=== PATIENT | male | born 1950 | race Caucasian/White ===

== ENCOUNTER 2020-03-30 15:49 | Emergency (ER) | payer MEDICARE, OTHER ==
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
[2020-03-30 16:27] LABS: ABSOLUTE EOSINOPHILS # (AUTO) 0.2 10^3/uL (0.0-0.6); ABSOLUTE LYMPHOCYTES (AUTO) 1.4 10^3/uL (0.5-4.7); ABSOLUTE MONOCYTES (AUTO) 0.4 10^3/uL (0.1-1.4); BASOPHILS % (AUTO) 0.5 % (0-2); EOSINOPHILS % (AUTO) 3.5 % (0-6); HEMATOCRIT 40.3 % (37.9-51.0); HEMOGLOBIN 13.5 g/dL (13.5-17.0); LYMPHOCYTES % (AUTO) 27.9 % (13-45); MEAN CORPUSCULAR HEMOGLOBIN 32.6 pg (27.0-33.4); MEAN CORPUSCULAR HGB CONC 33.5 g/dL (32.0-36.0); MEAN CORPUSCULAR VOLUME 97 fl (80-97); MONOCYTES % (AUTO) 7.3 % (3-13); PLATELET COUNT 183 10^3/uL (150-450); RED BLOOD COUNT 4.15 10^6/uL (4.35-5.55); RED CELL DISTRIBUTION WIDTH 12.8 % (11.5-14.0); SEGMENTED NEUTROPHILS % (AUTO) 60.8 % (42-78); TOTAL CELLS COUNTED % (AUTO) 100 %
[2020-03-30 16:45] LABS: APPEARANCE,URINE CLEAR; BILIRUBIN,URINE NEGATIVE (NEGATIVE); COLOR,URINE YELLOW; GLUCOSE, URINE NEGATIVE (NEGATIVE); KETONES,URINE NEGATIVE (NEGATIVE); LEUKOCYTE ESTERASE,URINE NEGATIVE (NEGATIVE); NITRITE,URINE NEGATIVE (NEGATIVE); PROTEIN,URINE NEGATIVE (NEGATIVE); URINE SPECIFIC GRAVITY 1.015
[2020-03-30 16:45] LABS: ALBUMIN 3.7 g/dL (3.5-5.0); ALKALINE PHOSPHATASE 82 U/L (38-126); ANION GAP 5 (5-19); ASPARTATE AMINO TRANSFERASE 16 U/L (17-59); BILIRUBIN,TOTAL 0.6 mg/dL (0.2-1.3); BLOOD UREA NITROGEN 21 mg/dL (7-20); CALCIUM 8.7 mg/dL (8.4-10.2); CARBON DIOXIDE 27 mmol/L (22-30); CHLORIDE 106 mmol/L (98-107); GLUCOSE 95 mg/dL (75-110); TOTAL PROTEIN 5.9 g/dL (6.3-8.2)
--- NOTE | 2020-03-30 17:11 | RADIOLOGY REPORT (SQ) ---
EXAM DESCRIPTION: CT HEAD WITHOUT IMAGES COMPLETED DATE/TIME: 03/30/2020 5:00 pm REASON FOR STUDY: syncope COMPARISON: None. TECHNIQUE: Axial images acquired through the brain without intravenous contrast. Images reviewed wi th bone, brain and subdural windows. Additional sagittal and coronal reconstructions were generated. Images stored on PACS. All CT scanners at this facility use dose modulation, iterative reconstruction, and/or weight based d osing when appropriate to reduce radiation dose to as low as reasonably achievable (ALARA). [facility]: Dose Right [facility]: CareDose [facility]: Dose Right [facility]: Teradose 4D [facility]: [employer] RADIATION DOSE: CT Rad equipment meets quality standard of care and radiation dose reduction techniq ues were employed. CTDIvol: 53.2 mGy. DLP: 1124 mGy-cm. LIMITATIONS: None. FINDINGS: There is no acute intracranial hemorrhage, vascular territorial infarct, extra-axial fluid collection, mass effect or midline shift. The diego-white matter differentiation is preserved. Ther e is no effacement of the cerebral sulci or basal subarachnoid cisterns. The caliber of the ventricl es is concordant with the degree of sulcation. The orbits and globes are intact. The paranasal sinuses are clear. There is no fracture of the calv arium. IMPRESSION: No acute intracranial abnormality. EVIDENCE OF ACUTE STROKE: NO. COMMENT: Quality ID # [id number]: Final reports with documentation of one or more dose reduction techniques (e.g., Automated exposure control, adjustment of the mA and/or kV according to patient size, use of iterative reconstruction technique) TECHNICAL DOCUMENTATION: JOB ID: [id number] 2010 [employer]- All Rights Reserved Reading location - IP/workstation name: [email or web address]
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
[2020-03-30 17:50] VITALS: BP 130/75
--- NOTE | 2020-03-30 22:40 | EKG REPORT ---
SEVERITY:- NORMAL ECG - SINUS RHYTHM : Confirmed by: Eliana Patel 30-Mar-2020 22:40:08
== END 2020-03-30 18:32 | disposition home or self-care (01) ==
LOC: ER 15:49
DX: Z04.1 Encounter for examination and observation following transport accident (principal); R41.82 Altered mental status, unspecified; R41.3 Other amnesia; Z87.891 Personal history of nicotine dependence
CPT/HCPCS: 36415; 70450; 80053; 81001; 84484; 85025; 93005; 93010; 96374; 99284

== ENCOUNTER 2020-07-28 06:53 | Day surgery (SDC) | payer MEDICARE, OTHER ==
[~2020-07-28 06:53] MED LIST: KETOROLAC TROMETHAMINE 0.45% 4 DROP/0.4 ML DROPERETTE OD PRN
[2020-07-28] MEDS: TETRACAINE HCL 0.5% OPH SOLN 4 ML OD PRN ×4 (07:13→07:54)
[2020-07-28] MEDS: BESIFLOXACIN HCL 0.6% OPH SUSP 5 ML BOTTLE OD PRN ×4 (07:13→08:28)
[2020-07-28] MEDS: CYCLOPENTOLATE 0.2%/PHENYLEPHRINE 1% OPH SOLN 2 ML OD PRN ×3 (07:13→07:33)
[2020-07-28] MEDS: TROPICAMIDE 1% OPH SOLN 15 ML OD PRN ×3 (07:13→07:33)
[2020-07-28] MEDS ORDERED: FENTANYL CITRATE INJ/PF 100 MCG/2 ML AMPUL ONE (07:18)
[2020-07-28] MEDS ORDERED: MIDAZOLAM 2 MG/2 ML INJ ONE (07:18)
[2020-07-28] MEDS: LIDOCAINE 4% INJ/PF (40 MG/ML) 5 ML AMPUL OD PRN ×2 (07:56)
[2020-07-28] MEDS: BUPIVACAINE HCL 0.75% INJ/PF (7.5 MG/1 ML) 10 ML SDV OD PRN ×2 (07:56)
[2020-07-28] MEDS: CHONDR SU A NA/HYALUR INTRAOC KIT (SURGICARE) ONE ×2 (08:14)
[2020-07-28] MEDS: EPINEPHRINE INJ/PF 1 MG/1 ML AMPULE ONE ×2 (08:14)
[2020-07-28] MEDS: LIDOCAINE 1% INJ-PF (10 MG/ML) 30 ML SDV ONE ×2 (08:14)
[2020-07-28] MEDS: PREDNISOLONE ACETATE 1% OPH SUSP 5 ML OD PRN ×2 (08:28)
[2020-07-28] MEDS: DORZOLAMIDE HCL 2%/TIMOLOL MALEAT 0.5% OPH SOLN 10 ML OD PRN ×2 (08:28)
--- NOTE | 2020-07-28 08:37 | Operative Report ---
Operative Report-[facility] Operative Report: DATE OF SURGERY: 07/28/2020 PREOPERATIVE DIAGNOSIS: CATARACT, RIGHT EYE. POSTOPERATIVE DIAGNOSIS: CATARACT, RIGHT EYE. PROCEDURE PERFORMED: PHACOEMULSIFICATION WITH POSTERIOR CHAMBER INTRAOCULAR LENS, RIGHT EYE. Intraocular Lens Model : MX60E 22.0 Total Phaco Time: 6.59 CDE SURGEON: DERECK RICHARD MD ANESTHESIA: TOPICAL WITH MAC. INDICATIONS FOR SURGERY: Difficulty reading small print and traffic signs. PROCEDURE: The patient was brought to the Operating Room and placed on the operative table. Following tetracaine drops, topical anesthesia was administered. This consisted of instrument wipe pledgets soaked in a solution of 4% Xylocaine mixed with 0.75% Marcaine in a 1:2 ratio. A 2 x 1 cm pledget was placed in the superior fornix. A 1 x 1 cm pledget was placed in the inferior fornix. The eye was patched shut for 5 minutes. The patch was removed. The eye was sterilely prepped and draped in the usual manner. Lid speculum was placed in the eye. The pledgets were removed. 4-0 black silk sutures were placed around the superior and the inferior rectus muscles to be used as traction. A conjunctival peritomy was made at the 10 o'clock position. Hemostasis was obtained with bipolar cautery. A posterior limbal groove was created using a crescent knife and dissected anteriorly towards the cornea. A sharp point blade was used to create a paracentesis site at the 2 o'clock position. 0.2 cc non preserved Lidocaine was injected into the anterior chamber. A 2.4 mm keratome was used to enter the anterior chamber through the groove. Viscoelastic was injected into the anterior chamber. An anterior capsulotomy was performed using Utrata forceps in a capsulorrhexis fashion. Hydrodissection and hydrodelineation were performed. Phacoemulsification was performed in [id number] technique. Following this, the I/A unit was used to remove residual cortex. Viscoelastic was injected into the capsular bag. The Intraocular lens was placed in the capsular bag. The I/A unit was used to remove residual viscoelastic. The wound was seen to be watertight under high and low pressure, and no sutures were placed. The intraocular lens was well centered. The pressure was adjusted in the eye to normal pressure. The 4-0 black silk sutures and lid speculum were removed. The eye was shielded after Besivance. prednisolone, and Cosopt drops were placed. The patient tolerated the procedure well and was sent to the Recovery Room in good condition.
== END 2020-07-28 09:00 | disposition home or self-care (01) ==
LOC: SC 06:53
PROVIDERS: ATTEND Ophthalmology
DX: H25.811 Combined forms of age-related cataract, right eye (principal); H04.123 Dry eye syndrome of bilateral lacrimal glands; H52.4 Presbyopia; I10 Essential (primary) hypertension; E78.00 Pure hypercholesterolemia, unspecified; K21.9 Gastro-esophageal reflux disease without esophagitis; M19.90 Unspecified osteoarthritis, unspecified site; Z87.891 Personal history of nicotine dependence
CPT/HCPCS: 66984; V2632; J2250; J3490 ×5; A9270; J0171; J3010

== ENCOUNTER 2020-08-18 09:45 | Day surgery (SDC) | payer MEDICARE, OTHER ==
[~2020-08-18 09:45] MED LIST changes: +BUPIVACAINE HCL 0.75% INJ/PF (7.5 MG/1 ML) 10 ML SDV OS PRN; -KETOROLAC TROMETHAMINE 0.45% 4 DROP/0.4 ML DROPERETTE OD PRN; +KETOROLAC TROMETHAMINE 0.45% 4 DROP/0.4 ML DROPERETTE OS PRN; +LIDOCAINE 4% INJ/PF (40 MG/ML) 5 ML AMPUL OS PRN; +MIDAZOLAM 2 MG/2 ML INJ ONE
[2020-08-18] MEDS: BESIFLOXACIN HCL 0.6% OPH SUSP 5 ML BOTTLE OS PRN ×5 (10:22→11:26)
[2020-08-18] MEDS: CYCLOPENTOLATE 0.2%/PHENYLEPHRINE 1% OPH SOLN 2 ML OS PRN ×3 (10:22→10:36)
[2020-08-18] MEDS: TROPICAMIDE 1% OPH SOLN 15 ML OS PRN ×3 (10:22→10:36)
[2020-08-18] MEDS: TETRACAINE HCL 0.5% OPH SOLN 4 ML OS PRN ×3 (10:22→11:04)
[2020-08-18] MEDS: LIDOCAINE 1% INJ-PF (10 MG/ML) 30 ML SDV ONE ×2 (11:13→11:14)
[2020-08-18] MEDS: CHONDR SU A NA/HYALUR INTRAOC KIT (SURGICARE) ONE ×2 (11:13→11:14)
[2020-08-18] MEDS: EPINEPHRINE INJ/PF 1 MG/1 ML AMPULE ONE ×2 (11:13→11:14)
[2020-08-18] MEDS: DORZOLAMIDE HCL 2%/TIMOLOL MALEAT 0.5% OPH SOLN 10 ML OS PRN ×3 (11:25→11:26)
[2020-08-18] MEDS: PREDNISOLONE ACETATE 1% OPH SUSP 5 ML OS PRN ×3 (11:25→11:26)
[2020-08-18 12:11] VITALS: BP 115/72
--- NOTE | 2020-08-18 12:39 | Operative Report ---
Operative Report-[facility] Operative Report: DATE OF SURGERY: 08/18/2020 PREOPERATIVE DIAGNOSIS: CATARACT, LEFT EYE. POSTOPERATIVE DIAGNOSIS: CATARACT, LEFT EYE. PROCEDURE PERFORMED: PHACOEMULSIFICATION WITH POSTERIOR CHAMBER INTRAOCULAR LENS, LEFT EYE. Intraocular Lens Model : MX60E 22.0 Total Phaco Time: 6.77 CDE SURGEON: DERECK RICHARD MD ANESTHESIA: TOPICAL WITH MAC. INDICATIONS FOR SURGERY: Difficultly fishing and reading tape measure PROCEDURE: The patient was brought to the Operating Room and placed on the operative table. Following tetracaine drops, topical anesthesia was administered. This consisted of instrument wipe pledgets soaked in a solution of 4% Xylocaine mixed with 0.75% Marcaine in a 1:2 ratio. A 2 x 1 cm pledget was placed in the superior fornix. A 1 x 1 cm pledget was placed in the inferior fornix. The eye was patched shut for 5 minutes. The patch was removed. The eye was sterilely prepped and draped in the usual manner. Lid speculum was placed in the eye. The pledgets were removed. 4-0 black silk sutures were placed around the superior and the inferior rectus muscles to be used as traction. A conjunctival peritomy was made at the 10 o'clock position. Hemostasis was obtained with bipolar cautery. A posterior limbal groove was created using a crescent knife and dissected anteriorly towards the cornea. A sharp point blade was used to create a paracentesis site at the 2 o'clock position. 0.2 cc non preserved Lidocaine was injected into the anterior chamber. A 2.4 mm keratome was used to enter the ante rior chamber through the groove. Viscoelastic was injected into the anterior chamber. An anterior capsulotomy was performed using Utrata forceps in a capsulorrhexis fashion. Hydrodissection and hydrodelineation were performed. Phacoemulsification was performed in [id number] technique. Following this, the I/A unit was used to remove residual cortex. Viscoelastic was injected into the capsular bag. The Intraocular lens was placed in the capsular bag. The I/A unit was used to remove residual viscoelastic. The wound was seen to be watertight under high and low pressure, and no sutures were placed. The intraocular lens was well centered. The pressure was adjusted in the eye to normal pressure. The 4-0 black silk sutures and lid speculum were removed. The eye was shielded after Besivance,prednisolone, and Cosopt drops were placed. The patient tolerated the procedure well and was sent to the Recovery Room in good condition.
== END 2020-08-18 12:08 | disposition home or self-care (01) ==
LOC: SC 09:45
PROVIDERS: ATTEND Ophthalmology
DX: H25.812 Combined forms of age-related cataract, left eye (principal); Z96.1 Presence of intraocular lens; I10 Essential (primary) hypertension; K21.9 Gastro-esophageal reflux disease without esophagitis; Z79.899 Other long term (current) drug therapy; Z83.518 Family history of other specified eye disorder; Z87.891 Personal history of nicotine dependence
CPT/HCPCS: 66984; V2632; J2250; J3490 ×5; A9270; J0171

== ENCOUNTER 2020-09-11 20:36 | Emergency (ER) | payer MEDICARE, OTHER ==
--- NOTE | 2020-09-11 20:55 | ER Document Report ---
ED Medical Screen (RME) - General Chief Complaint: Chest Pain Stated Complaint: CHEST PAIN Time Seen by Provider: 09/11/20 20:47 Primary Care Provider: ALVERTO KUNZ MD [Primary Care Provider] - Follow up as needed Mode of Arrival: Wheelchair Information source: Patient Notes: 69-year-old male presented to ED for complaint of pain to the left side of his chest radiating down the left arm with numbness to the left arm left face left ear left jaw. He also has pain to the left ear left jaw. I have let the charge nurse his pain is an that he also has numbness to his left side of his face jaw and arm. She stated she did not have a bed at this time but to get his blood work drawn promptly. I have asked the tech to place draw his blood next. Charge nurses patient can go to room 10 I have greeted and performed a rapid initial assessment of this patient. A comprehensive ED assessment and evaluation of the patient, analysis of test results and completion of medical decision making process will be conducted by an additional ED providers. - Related Data Allergies/Adverse Reactions: No Known Allergies Allergy (Verified 07/28/20 07:16) Past Medical History - Past Medical History Cardiac Medical History: Denies: Hx Heart Attack, Hx Hypertension Pulmonary Medical History: Denies: Hx Asthma Neurological Medical History: Denies: Hx Cerebrovascular Accident, Hx Seizures GI Medical History: Denies: Hx Hepatitis, Hx Hiatal Hernia, Hx Ulcer Infectious Medical History: Denies: Hx Hepatitis Past Surgical History: Denies: Hx Open Heart Surgery, Hx Pacemaker Doctor's Discharge - Discharge Referrals: ALVERTO KUNZ MD [Primary Care Provider] - Follow up as needed
[2020-09-11 21:10] LABS: ABSOLUTE EOSINOPHILS # (AUTO) 0.1 10^3/uL (0.0-0.6); ABSOLUTE LYMPHOCYTES (AUTO) 1.6 10^3/uL (0.5-4.7); ABSOLUTE MONOCYTES (AUTO) 0.6 10^3/uL (0.1-1.4); ABSOLUTE NEUT (AUTO) 7.2 10^3/uL (1.7-8.2); BASOPHILS % (AUTO) 0.3 % (0-2); EOSINOPHILS % (AUTO) 1.2 % (0-6); HEMATOCRIT 42.2 % (37.9-51.0); HEMOGLOBIN 14.2 g/dL (13.5-17.0); LYMPHOCYTES % (AUTO) 16.4 % (13-45); MEAN CORPUSCULAR HEMOGLOBIN 33.2 pg (27.0-33.4); MEAN CORPUSCULAR HGB CONC 33.6 g/dL (32.0-36.0); MEAN CORPUSCULAR VOLUME 99 fl (80-97); MONOCYTES % (AUTO) 5.9 % (3-13); PLATELET COUNT 234 10^3/uL (150-450); RED BLOOD COUNT 4.27 10^6/uL (4.35-5.55); RED CELL DISTRIBUTION WIDTH 12.9 % (11.5-14.0); SEGMENTED NEUTROPHILS % (AUTO) 76.2 % (42-78); TOTAL CELLS COUNTED % (AUTO) 100 %; WHITE BLOOD COUNT 9.5 10^3/uL (4.0-10.5)
[2020-09-11 21:27] LABS: ALBUMIN 3.8 g/dL (3.5-5.0); ALKALINE PHOSPHATASE 78 U/L (38-126); ANION GAP 5 (5-19); ASPARTATE AMINO TRANSFERASE 11 U/L (17-59); BILIRUBIN,DIRECT 0.1 mg/dL (0.0-0.4); BILIRUBIN,TOTAL 0.7 mg/dL (0.2-1.3); BLOOD UREA NITROGEN 26 mg/dL (7-20); CALCIUM 9.5 mg/dL (8.4-10.2); CARBON DIOXIDE 29 mmol/L (22-30); CHLORIDE 104 mmol/L (98-107); CREATINE KINASE 47 U/L (55-170); GLUCOSE 102 mg/dL (75-110); POTASSIUM 4.8 mmol/L (3.6-5.0); TOTAL PROTEIN 6.1 g/dL (6.3-8.2)
--- NOTE | 2020-09-11 22:13 | RADIOLOGY REPORT (SQ) ---
EXAM DESCRIPTION: CHEST 2 VIEWS CLINICAL HISTORY: 69 years Male, Left chest pain radiating to jaw and left ear COMPARISON: None. FINDINGS: Lungs: Lungs are hyperinflated. No focal consolidation. No pneumothorax or pleural effusion. Mediastinum: Cardiac and mediastinal silhouette are normal. Bones: There is endplate spondylosis throughout the thoracic spine. IMPRESSION: Hyperinflation. No pneumonia or edema.
--- NOTE | 2020-09-12 00:34 | RADIOLOGY REPORT (SQ) ---
EXAM DESCRIPTION: CT HEAD WITHOUT IV CONTRAST COMPLETED DATE/TME: 09/12/2020 00:15 CLINICAL HISTORY: numbness left side COMPARISON: 03/30/2020 TECHNIQUE: Axial CT of the head obtained from the skull apex to the skull base without contrast. FINDINGS: No acute intracranial hemorrhage identified. No mass, mass effect, shift of the midline, abnormal extra-axial fluid collection or CT evidence of acute ischemic change identified. The ventricular system and sulcal spaces are not enlarged. Scattered areas of hypodensity throughout the supratentorial white matter are nonspecific and may be related to chronic small vessel ischemic change. The visualized paranasal sinuses and mastoid air cells are well aerated. No skull fracture identified. Visualized orbits and globes are unremarkable. Atherosclerotic calcification of the intracranial internal carotid arteries. IMPRESSION: 1. No acute intracranial abnormality by CT criteria. This exam was performed according to our departmental dose-optimization program, which includes automated exposure control, adjustment of the mA and/or kV according to patient size and/or use of iterative reconstruction technique.
--- NOTE | 2020-09-12 01:01 | RADIOLOGY REPORT (SQ) ---
EXAM DESCRIPTION: CTA ABDOMEN/PELVIS W WO (accession [id number]), CTA CHEST (accession [id number]) CLINICAL HISTORY: 69 years Male; numbness to left side with chest pain TECHNIQUE: Unenhanced CT scan of the chest was initially performed. This was followed by CT angiogram of the chest using intravenous contrast.. MIP reconstructions were performed. All CT scans at this facility use dose modulation, iterative reconstruction, and/or weight based dosing when appropriate to reduce radiation dose to as low as reasonably achievable. COMPARISON: None. FINDINGS: Motion artifact is present throughout the exam. Chest: Vascular: Thoracic aorta is of normal caliber. No aneurysm or dissection. The central pulmonary arteries are well opacified. Proximal great vessels are patent. Lungs: Lungs appear hyperinflated. No focal consolidation. No pneumothorax or pleural effusion. No pulmonary nodules or masses. Mediastinum: Heart size is normal. No pericardial abnormality. No mediastinal or hilar lymphadenopathy. Bones and soft tissues: There is endplate spondylosis in the spine. No obvious fracture. There is ac joint arthropathy bilaterally. IMPRESSION: 1. No thoracic aortic aneurysm or dissection. 2. No large or central PE is seen. 3. No acute process in the chest. EXAM DESCRIPTION: CTA ABDOMEN/PELVIS W WO (accession [id number]), CTA CHEST (accession [id number]) CLINICAL HISTORY: 69 years Male; numbness to left side with chest pain TECHNIQUE: Unenhanced CT scan of the abdomen and pelvis. This was followed by CT angiogram of the abdomen and pelvis using intravenous contrast.. MIP reconstructions were performed. 3-D volumetric imaging was performed. Abdomen and pelvis All CT scans at this facility use dose modulation, iterative reconstruction, and/or weight based dosing when appropriate to reduce radiation dose to as low as reasonably achievable. COMPARISON: None. FINDINGS: Motion artifact is present throughout the exam. ABDOMEN: Aorta: Scattered vascular plaque is present in the aorta. In the mid abdominal aorta is a small saccular aneurysm which measures 3.2 cm. No dissection. No evidence of impending rupture. Celiac: Normal SMA: Normal Left renal: Normal Right renal: Normal [place]: Normal Liver: There is a probable low density area in the left liver lobe measuring approximately 10 mm. Liver and gallbladder mostly obscured by motion artifact. No obvious abnormality. Pancreas:Within normal limits Spleen:Within normal limits Kidneys: In the lower pole of the left kidney is a 10 mm nonobstructing stone. There is no hydronephrosis. Adrenal glands:Within normal limits GI: Moderate stool is present throughout the colon. No focal obstruction. Overall visualization the bowel is limited secondary to motion appendix: The appendix is not clearly seen. Abdominal wall: Unremarkable Retroperitoneal: No mass or lymphadenopathy General: No free air. No free fluid. Bones: Degenerative changes noted in the lumbar spine. No destructive bone lesions. Bladder: There is a diverticulum arising from the right posterior aspect of the bladder Pelvis: No pelvic mass or adenopathy. PELVIS: The common, internal and Iliac arteries have scattered vascular plaque. No dissection, aneurysm or occlusion. Common femoral arteries are patent bilaterally. IMPRESSION: 1. 3.2 cm saccular abdominal aortic aneurysm. Vascular consultation is recommended. No evidence of impending rupture. No dissection. 2. Nonobstructing stone in the lower pole of the left kidney. 3. Qualitatively the exam is limited secondary to a large amount of motion. No obvious acute abnormality.
--- NOTE | 2020-09-12 01:01 | RADIOLOGY REPORT (SQ) ---
EXAM DESCRIPTION: CTA ABDOMEN/PELVIS W WO (accession [id number]), CTA CHEST (accession [id number]) CLINICAL HISTORY: 69 years Male; numbness to left side with chest pain TECHNIQUE: Unenhanced CT scan of the chest was initially performed. This was followed by CT angiogram of the chest using intravenous contrast.. MIP reconstructions were performed. All CT scans at this facility use dose modulation, iterative reconstruction, and/or weight based dosing when appropriate to reduce radiation dose to as low as reasonably achievable. COMPARISON: None. FINDINGS: Motion artifact is present throughout the exam. Chest: Vascular: Thoracic aorta is of normal caliber. No aneurysm or dissection. The central pulmonary arteries are well opacified. Proximal great vessels are patent. Lungs: Lungs appear hyperinflated. No focal consolidation. No pneumothorax or pleural effusion. No pulmonary nodules or masses. Mediastinum: Heart size is normal. No pericardial abnormality. No mediastinal or hilar lymphadenopathy. Bones and soft tissues: There is endplate spondylosis in the spine. No obvious fracture. There is ac joint arthropathy bilaterally. IMPRESSION: 1. No thoracic aortic aneurysm or dissection. 2. No large or central PE is seen. 3. No acute process in the chest. EXAM DESCRIPTION: CTA ABDOMEN/PELVIS W WO (accession [id number]), CTA CHEST (accession [id number]) CLINICAL HISTORY: 69 years Male; numbness to left side with chest pain TECHNIQUE: Unenhanced CT scan of the abdomen and pelvis. This was followed by CT angiogram of the abdomen and pelvis using intravenous contrast.. MIP reconstructions were performed. 3-D volumetric imaging was performed. Abdomen and pelvis All CT scans at this facility use dose modulation, iterative reconstruction, and/or weight based dosing when appropriate to reduce radiation dose to as low as reasonably achievable. COMPARISON: None. FINDINGS: Motion artifact is present throughout the exam. ABDOMEN: Aorta: Scattered vascular plaque is present in the aorta. In the mid abdominal aorta is a small saccular aneurysm which measures 3.2 cm. No dissection. No evidence of impending rupture. Celiac: Normal SMA: Normal Left renal: Normal Right renal: Normal [place]: Normal Liver: There is a probable low density area in the left liver lobe measuring approximately 10 mm. Liver and gallbladder mostly obscured by motion artifact. No obvious abnormality. Pancreas:Within normal limits Spleen:Within normal limits Kidneys: In the lower pole of the left kidney is a 10 mm nonobstructing stone. There is no hydronephrosis. Adrenal glands:Within normal limits GI: Moderate stool is present throughout the colon. No focal obstruction. Overall visualization the bowel is limited secondary to motion appendix: The appendix is not clearly seen. Abdominal wall: Unremarkable Retroperitoneal: No mass or lymphadenopathy General: No free air. No free fluid. Bones: Degenerative changes noted in the lumbar spine. No destructive bone lesions. Bladder: There is a diverticulum arising from the right posterior aspect of the bladder Pelvis: No pelvic mass or adenopathy. PELVIS: The common, internal and Iliac arteries have scattered vascular plaque. No dissection, aneurysm or occlusion. Common femoral arteries are patent bilaterally. IMPRESSION: 1. 3.2 cm saccular abdominal aortic aneurysm. Vascular consultation is recommended. No evidence of impending rupture. No dissection. 2. Nonobstructing stone in the lower pole of the left kidney. 3. Qualitatively the exam is limited secondary to a large amount of motion. No obvious acute abnormality.
[2020-09-12] MEDS ORDERED: ASPIRIN 325 MG TABLET PO ONE (01:32)
--- NOTE | 2020-09-12 01:57 | ER Document Report ---
ED Cardiac - General Chief Complaint: Chest Pain > 30 Stated Complaint: CHEST PAIN Time Seen by Provider: 09/11/20 20:47 Primary Care Provider: ALVERTO KUNZ MD [Primary Care Provider] - Follow up as needed Mode of Arrival: Wheelchair - [facility] Notes: Patient is a 69-year-old male with a past medical history of hypertension and hyperlipidemia who presents with chest pain. Patient states he has had chest pain off and on in his left chest for several days. He states it worsened today. Patient states he had numbness on his left arm and his left neck. No headaches or dizziness. This started around 2 PM and resolved completely. 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 He is not on any blood thinners. He states he has some slight residual chest pain. - Related Data Allergies/Adverse Reactions: No Known Allergies Allergy (Verified 09/11/20 21:15) Past Medical History - General Information source: Patient - Social History Smoking Status: Never Smoker Chew tobacco use (# tins/day): No Frequency of alcohol use: Occasional Drug Abuse: None Family History: Reviewed & Not Pertinent Patient has homicidal ideation: No - Past Medical History Cardiac Medical History: Reports: Hx Hypertension Denies: Hx Heart Attack Pulmonary Medical History: Denies: Hx Asthma Neurological Medical History: Denies: Hx Cerebrovascular Accident, Hx Seizures GI Medical History: Denies: Hx Hepatitis, Hx Hiatal Hernia, Hx Ulcer Infectious Medical History: Denies: Hx Hepatitis Past Surgical History: Denies: Hx Open Heart Surgery, Hx Pacemaker Review of Systems - Review of Systems Notes: CONSTITUTIONAL: No fever, fatigue or weight loss. SKIN: No rash. HENT: No congestion, ear pain, or sore throat. EYES: No recent vision problems or eye pain. CARDIOVASCULAR: Positive for chest pain. RESPIRATORY: No cough, shortness of breath, congestion, or wheezing. GASTROINTESTINAL: No abdominal pain, nausea, vomiting, bloody stools or diarrhea. GENITOURINARY: No dysuria. MUSCULOSKELETAL: No joint pain or swelling. LYMPHATIC: No swollen glands. NEUROLOGIC: No seizures. Positive for resolved left arm and neck numbness. HEMATOLOGIC: No unusual bruising or bleeding. PSYCHIATRIC: No depression or anxiety. Physical Exam - Vital signs Vitals: Temp Pulse Resp BP Pulse Ox 98.0 F 70 14 139/81 H 98 09/11/20 20:47 09/11/20 20:47 09/11/20 20:47 09/11/20 20:47 09/11/20 20:47 - General General appearance: Appears well Notes: VITAL SIGNS: Within normal limits. GENERAL: No acute distress, non-toxic appearance. HEAD: Normal with no signs of head trauma. EYES: EOMI, conjunctiva normal, no discharge. EARS: Hearing grossly intact. NOSE: Normal. NECK: Normal range of motion, no tenderness, supple, no lymphadenopathy, No adenopathy, no JVD. CHEST: Clear breath sounds bilaterally. No wheezes, rales, or rhonchi. CARDIAC: Regular rate and rhythm. S1 and S2, without murmurs, gallops, or rubs. Reproducible lower left anterior chest pain. VASCULAR: No Edema. Peripheral pulses normal and equal in all extremities. ABDOMEN: Normal and soft with no tenderness, no masses or pulsatile masses. GENITOURINARY: Normal, No tenderness LYMPATHTIC: No lymphadenopathy noted. MUSCULOSKELETAL: Good range of motion of all major joints. Extremities without clubbing, cyanosis or edema. NEUROLOGICAL: Alert and oriented x 3. No focal sensory or strength deficits. Speech normal. Follows commands appropriately. NIH is 0. PSYCHIATRIC: Normal Affect, judgement and mood. SKIN: Normal appearance with no rashes or lesions. Course - Re-evaluation Re-evalutation: 09/12/20 02:55 Patient had 2 normal troponins. His EKG is nonacute. Heart Score is 3. States his chest pain is much better. Head CT was normal. His CTA does show a 3.2 cm abdominal aortic aneurysm. I discussed with vascular, Dr. Wang, who recommended he follow-up in the office. I did recommend patient stay in the hospital for possible TIA work-up as well as chest pain. He declined. He states he feels better and would like to go home. He states he will call his family doctor first thing on Monday. He will also follow-up with vascular. I did give patient strict return precautions and him and his verbalized understanding. 09/12/20 02:56 - Vital Signs Vital signs: Temp Pulse Resp BP Pulse Ox 98.0 F 70 23 H 126/88 H 99 09/11/20 21:11 09/11/20 20:47 09/11/20 22:02 09/11/20 22:02 09/11/20 22:02 - Laboratory Result Diagrams: 09/11/20 20:57 09/11/20 20:57 Laboratory results interpreted by me: 09/11/20 09/11/20 20:57 20:57 RBC 4.27 L MCV 99 H BUN 26 H AST 11 L Creatine Kinase 47 L Total Protein 6.1 L - Diagnostic Test Radiology reviewed: Image reviewed, Reports reviewed Discharge - Discharge Clinical Impression: Abdominal aneurysm, Paresthesia Chest pain Qualifiers: Chest pain type: unspecified Qualified Code(s): R07.9 - Chest pain, unspecified Condition: Stable Disposition: HOME, SELF-CARE Instructions: Chest Pain of Unclear Cause ([facility]), Aortic Aneurysm ([facility]) Additional Instructions: You have an abdominal aneurysm measuring 3.2 cm. Please follow-up with Dr. Nawaf Wang in [place] with [facility]. Phone number is [phone]. Please call him on Monday. You will be given a CD of your CAT scans from today. Please take this with you to your appointment with vascular surgery. Please return to the ER for any return of chest pain, numbness, any other concerning symptoms. Please follow-up with your agency sales management assistant and your family doctor. Please give them a call on Monday. Referrals: ALVERTO KUNZ MD [Primary Care Provider] - Follow up as needed NAWAF WANG MD [NO LOCAL MD] - Follow up in 3-5 days
[2020-09-12 02:14] VITALS: BP 125/93
--- NOTE | 2020-09-12 09:51 | EKG REPORT ---
SEVERITY:- NORMAL ECG - SINUS RHYTHM : Confirmed by: Eliana Patel 12-Sep-2020 09:51:09
== END 2020-09-12 02:15 | disposition home or self-care (01) ==
LOC: ER 20:36
DX: R07.9 Chest pain, unspecified (principal); I71.4 Abdominal aortic aneurysm, without rupture; R20.0 Anesthesia of skin; I10 Essential (primary) hypertension
CPT/HCPCS: 93005; 99285; 36415; 82550; 83735; 85025; 80053; 84484; 71046; 70450; 71275; 74174; 93010; A9270